=== PATIENT | male | born 1950 | race Caucasian/White ===

== ENCOUNTER 2022-09-21 17:38 | Observation (INO) | payer OTHER ==
[2022-09-21 18:06] LABS: SARS-CoV-2 Antigen Rapid Res Negative (Negative)
[2022-09-21 19:41] VITALS: BMI 26.8
[2022-09-21] MEDS ORDERED: ACETAMINOPHEN 325 MG TABLET PO PRN (19:45)
[2022-09-21] MEDS ORDERED: DIPHENHYDRAMINE 25 MG TAB/CAP PO PRN (19:45)
[2022-09-21] MEDS ORDERED: ONDANSETRON 4 MG (ODT) TAB PO PRN (19:45)
[2022-09-21] MEDS ORDERED: POLYETHYL GLY 3350 17 GM/DOSE PO PRN (19:45)
[2022-09-21] MEDS ORDERED: LOPERAMIDE HCL 2 MG CAPSULE PO PRN (19:45)
[2022-09-21] MEDS ORDERED: NACHLORIDE 0.45% 1,000 ML IV SCH ×2 (20:00→22:00)
[2022-09-21 20:05] LABS: Absolute Lymphocytes (CBC) 1.4 K/uL (0.7-4.9); Hematocrit 43.7 % (39.6-49.0); Lymphocytes % 12.3 % (15.3-44.8); MCV 91.1 fL (80-100); MPV 7.9 fL (7.6-11.3)
[2022-09-21 20:12] LABS: Protime INR 1.11
[2022-09-21 20:31] LABS: Albumin 3.8 g/dL (3.4-5.0); Bilirubin Direct 0.2 mg/dL (0-0.2); Bilirubin Total 0.6 mg/dL (0.2-1.0); Phosphorus 4.1 mg/dL (2.5-4.9); Potassium 4.1 mmol/L (3.5-5.1); Thyroid Stimulating Hormone 2.01 uIU/mL (0.358-3.740)
--- NOTE | 2022-09-21 21:16 | RAD REPORT ---
EXAM DESCRIPTION: US - Abdomen Exam Complete - 09/21/2022 8:54 pm CLINICAL HISTORY: Abdominal pain COMPARISON: None. TECHNIQUE Sonographic grayscale and color flow images of the abdomen are obtained. FINDINGS: Exam is technically limited given over shadowing bowel gas in the epigastrium, limiting ev aluation of the pancreas and portions of the left liver lobe. Gallbladder is normal in size and distention, with normal wall thickness. No gallstones, wall thicken ing or pericholecystic fluid. Common bile duct is normal normal in caliber, 4 millimeter, with no com mon duct stone identified. The liver and spleen show no suspicious findings. The pancreas is obscured . Mild right hydronephrosis. No hydronephrosis on the left. No echogenic calculi. Incidentally noted me dially situated left renal mid pole cortical 2.6 centimeter anechoic cyst. No Suspicious mass in eith er kidney Upper abdominal Aorta is normal is size. No ascites or bulky lymphadenopathy. IMPRESSION: Technically limited exam for reasons mentioned above. Mild right hydronephrosis. No suspicious abnormalities of the liver and gallbladder.
--- NOTE | 2022-09-21 21:32 | RAD REPORT ---
EXAM DESCRIPTION: Saraht Pa And Lat (2 Views)09/21/2022 9:06 pm CLINICAL HISTORY: abd pains COMPARISON: No comparisons TECHNIQUE: PA and lateral views of the chest. FINDINGS: The lungs are clear. No pneumothorax or effusion. The cardiomediastinal contours are unrem arkable. IMPRESSION: No acute cardiopulmonary process.
[2022-09-21] MEDS: HYDROMORPHONE HCL 1 MG/ML INJ IV PRN (21:35)
[2022-09-21] MEDS: ONDANSETRON 4 MG/2 ML VIAL IV PRN (21:38)
[2022-09-22] MEDS ORDERED: METRONIDAZOLE 500mg IVPB 500 MG/100 ML BAG IV SCH
[2022-09-22] MEDS: CIPROFLOXACIN 400mg IV 400 MG/200 ML BAG IV SCH ×2 (00:28→08:57)
[2022-09-22] MEDS: TAMSULOSIN 0.4 MG SR CAP PO SCH ×2 (00:28→09:00)
[2022-09-22] MEDS: HYDROMORPHONE HCL 1 MG/ML INJ IV PRN ×3 (00:30→09:02)
[2022-09-22 00:35] LABS: Specific Gravity 1.021 (1.005-1.030); Urine Bilirubin NEGATIVE (Negative); Urine Blood Negative (Negative); Urine Clarity Clear (Clear); Urine Color Light-Yellow (Yellow); Urine Glucose NEGATIVE (Negative); Urine Protein NEGATIVE (Negative); Urine Urobilinogen Normal (Normal); Urine pH 5.5 (5.0-7.0)
[2022-09-22] MEDS: ONDANSETRON 4 MG/2 ML VIAL IV PRN (04:51)
[2022-09-22 06:33] LABS: Lymphocytes % 9.5 % (15.3-44.8); MCV 90.8 fL (80-100); MPV 7.8 fL (7.6-11.3); RBC Red Blood Cell Count 4.74 M/uL (4.33-5.43)
[2022-09-22 06:40] LABS: Potassium 3.9 mmol/L (3.5-5.1)
[2022-09-22] MEDS ORDERED: ENOXAPARIN 30 MG/0.3 ML SQ SCH (09:00)
[2022-09-22 12:09] VITALS: BP 102/59; TEMP 97.4
--- NOTE | 2022-09-22 21:29 | RAD REPORT ---
EXAM DESCRIPTION: CT - Stone Protocol - 09/22/2022 12:00 am CLINICAL HISTORY: The patient is 72 years old and is Male; PAIN TECHNIQUE: Axial computed tomography images of the abdomen and pelvis without intravenous contrast. Sagittal and coronal reformatted images were created and reviewed. This CT exam was performed usi ng one or more of the following dose reduction techniques: automated exposure control, adjustment o f the mA and/or kV according to patient size, and/or use of iterative reconstruction technique. COMPARISON: No relevant prior studies available. FINDINGS: LUNG BASES: Unremarkable. No mass. No consolidation. ABDOMEN: LIVER: The liver is enlarged and fatty. GALLBLADDER AND BILE DUCTS: The gallbladder is distended without calcified gallstones or ductal dilatation. PANCREAS: Unremarkable. No ductal dilation. SPLEEN: Unremarkable. ADRENALS: Unremarkable. No mass. KIDNEYS AND URETERS: Edema of the right kidney with mild right hydroureteronephrosis is present secondary to a 5 mm right UVJ calculus. Right perinephric stranding is present. Right intrarenal ca lcification is noted. Exophytic left renal cyst is present. No follow-up imaging is recommended. Ther e is no hydronephrosis or hydroureter of the left kidney. STOMACH AND BOWEL: The stomach is decompressed. The small bowel is relatively normal in caliber. A moderate amount stool is present throughout colon. There is no mucosal thickening or evidence of o bstruction. PELVIS: APPENDIX: No findings to suggest acute appendicitis. BLADDER: Unremarkable. No stones. REPRODUCTIVE: The prostate is enlarged and mildly heterogeneous. ABDOMEN and PELVIS: INTRAPERITONEAL SPACE: Unremarkable. No free air. No significant fluid collection. BONES/JOINTS: Multilevel degenerative change of the spine is present. There is no acute fractu re. SOFT TISSUES: The soft tissues are normal. VASCULATURE: Atherosclerosis of the vasculature is present. The vessels are normal in caliber. Multiple calcified phleboliths are present within the pelvis. No abdominal aortic aneurysm. LYMPH NODES: Unremarkable. No enlarged lymph nodes. IMPRESSION: 1. Edema of the right kidney with mild right hydroureteronephrosis is present secondar y to a 5 mm right UVJ calculus. 2. Mild prostatomegaly. Correlation with PSA and physical exam is recommended. Electronically signed by: Jesenia Lazar MD 09/21/2022 11:20 PM COMMERCIAL ASSISTANT Due to temporary technical issues with the PACS/Fluency reporting system, reports are being signed by the in house radiologists without review as a courtesy to insure prompt reporting. The interpreting radiologist is fully responsible for the content of the report.
--- NOTE | 2022-09-22 21:40 | P.DS ---
Admission Date: 09/21/22 Discharge Date: 09/22/22 Disposition: ROUTINE DISCHARGE Hospital Course: MONICA HAS PAIN RUQ AND WAS FOUND TO HAVE R RENAL STONE AT [facility] WITH MILD HYDRO. HE SI STABLE TO GO HOEM. HE WILL CONTINUE DOXAZONE AND ULTRAM FOR PAIN. FU ONE WK. HE MA Y PASS THE STONE IT IS SMALL. Vital Signs/Physical Exam: Temp Pulse Resp BP Pulse Ox 97.4 F 60 18 102/59 L 96 09/22/22 12:00 09/22/22 12:00 09/22/22 12:00 09/22/22 12:00 09/22/22 12:00 Laboratory Data at Discharge: WBC 10.70 K/uL (4.3-10.9) 09/22/22 06:09 Hgb 15.1 g/dL (13.6-17.9) 09/22/22 06:09 Hct 43.0 % (39.6-49.0) 09/22/22 06:09 Plt Count 143 K/uL (152-406) L 09/22/22 06:09 PT 12.2 SECONDS (9.5-12.5) 09/21/22 19:53 INR 1.11 09/21/22 19:53 APTT 30.7 SECONDS (24.3-36.9) 09/21/22 19:53 Sodium 138 mmol/L (136-145) 09/22/22 06:09 Potassium 3.9 mmol/L (3.5-5.1) 09/22/22 06:09 BUN 30 mg/dL (7-18) H 09/22/22 06:09 Creatinine 2.15 mg/dL (0.70-1.30) H 09/22/22 06:09 Glucose 107 mg/dL (74-106) H 09/22/22 06:09 Phosphorus 4.1 mg/dL (2.5-4.9) 09/21/22 19:53 Magnesium 2.0 mg/dL (1.6-2.4) 09/22/22 06:09 Total Bilirubin 0.6 mg/dL (0.2-1.0) 09/21/22 19:53 AST 21 U/L (15-37) 09/21/22 19:53 ALT 32 U/L (16-61) 09/21/22 19:53 Alkaline Phosphatase 84 U/L (45-117) 09/21/22 19:53 Home Medications: Doxazosin Mesylate 1 tab PO BEDTIME 09/21/22
--- NOTE | 2022-09-23 16:32 | EKG ---
Test Date: 2022-09-22 Test Time: 00:15:16 International Editorial Producer: 33 MEASUREMENT RESULTS: Intervals: Rate: 67 SC: 146 QRSD: 94 QT: 388 QTc: 409 [place]: P: 69 SC: 146 QRS: -16 T: 42 INTERPRETIVE STATEMENTS: Normal sinus rhythm Normal ECG No previous ECG available for comparison Electronically Signed On 09-23-22 16:29:50 [employer]JECT INTER[employer] by Favian Fry
[2022-09-25 23:34] LABS: Vitamin D 1,25-Dihydroxy Total 34 pg/mL (18-72); Vitamin D,1,25-OH2, D2 <8 pg/mL
== END 2022-09-22 13:34 | disposition home or self-care (01) ==
LOC: 4TH 19:06
PROVIDERS: ADMIT Internal Medicine; ATTEND Internal Medicine
DX: N13.2 Hydronephrosis with renal and ureteral calculous obstruction (principal); Z20.822 Contact with and (suspected) exposure to COVID-19
CPT/HCPCS: 93005; 85025 ×2; 80048 ×2; 36415; 83735 ×2; 84100; 85610; 80076; 85730; 82652; 84443; 81003; 82607; 76377; 74176; 71046; 76700; 87811; J1170 ×4; J2405 ×2; J0744 ×2; G0378; G0379; J1650

== ENCOUNTER 2025-04-20 18:35 | Emergency (ER) | payer OTHER ==
[2025-04-20] MEDS ORDERED: LORAZEPAM 0.5 MG TABLET ONE (19:41)
--- NOTE | 2025-04-20 19:54 | EDPHYS ---
Physician Documentation [facility] Name: Justo Reynaga Age: 75 yrs Sex: Male : 1950 Arrival Date: 04/20/2025 Time: 18:35 Bed 5 Private MD: ED Physician Toribio Dewitt HPI: 04/20 19:41 This 75 yrs old Male presents to ER via Ambulatory with complaints of anxiety after tt7 surgery. 19:41 Patient is here for intermittent anxious feeling whenever he tries to swallow after tt7 taking his Rousseau that was recently prescribed after he had a laminectomy and decompression of his lumbar spine on Tuesday. He reports that sometimes, after taking his Rousseau, he has a sensation that he cannot swallow properly. He denies shortness of breath. He has been able to tolerate oral intake without coughing or pain. He states that since starting the Rousseau he has been having increased anxiety. He skipped a dose today and states that he felt much better. Historical: - Allergies: 18:51 PENICILLINS; hb - Immunization history:: Adult Immunizations up to date. - Infectious Disease History:: Denies. - Social history:: Smoking status: Patient denies any tobacco usage or history of. ROS: 19:44 Constitutional: negative for fever. Cardiovascular: negative for chest pain. tt7 Respiratory: negative for shortness of breath. Abdomen/GI: negative for abdominal pain, nausea, vomiting, diarrhea. Skin: negative for rash. Neuro: negative for focal weakness. 19:44 Neck: Negative for mass, pain with movement, pain at rest, stiffness, swelling, tenderness, Exam: 19:45 Constitutional: vital signs reviewed, well appearing. Head/Face: normocephalic, tt7 atraumatic. Eyes: no conjunctival injection, anicteric sclerae. ENT: mucus membranes moist, oropharynx clear. Neck: trachea midline, no JVD, no meningismus, no swelling, no cervical lymphadenopathy, no stridor. 19:46 Cardiovascular: regular rate and rhythm, no lower extremity edema. Respiratory: tt7 normal respiratory effort, no accessory muscle use. Back: vertical lumbar spine surgical incision well approximated with steri strips, clean, dry, no erythema or purulent drainage, no bleeding, normal ROM. MS/ Extremity: normal ROM of extremities, no gross deformities. Neuro: alert and oriented with appropriate mental status, normal speech, follows commands, no focal neurologic deficits. Psych: anxious. Vital Signs: 18:49 BP 149 / 85; Pulse 80; Resp 16; Temp 98.8(O); Pulse Ox 96% on R/A; Pain 5/10; hb 19:17 BP 103 / 84; Pulse 82; Resp 17; Temp 98.4; mf3 20:11 BP 160 / 86; Pulse 83; Resp 18; Pulse Ox 96% ; mf3 18:49 Pain Scale: Adult hb [place] Coma Score: 19:14 Eye Response: spontaneous(4). Motor Response: obeys commands(6). Verbal Response: mf3 oriented(5). Total: 15. MDM: 19:06 Medical Screening Exam initiated tt7 19:48 Differential diagnosis: anxiety, pharyngitis, adverse medication reaction. Data tt7 reviewed: vital signs, nurses notes. Test considered but Not performed: CT: considered CT neck soft tissue but feel this would be of low utility as I do not suspect structural cause of symptoms. Historians other than the Patient: Spouse/Significant Other: . Daughter/Son: . Counseling: I had a detailed discussion with the patient and/or guardian regarding the historical points, exam findings, and any diagnostic results supporting the discharge/admit diagnosis, the need for outpatient follow up, to return to the emergency department if symptoms worsen or persist or if there are any questions or concerns that arise at home. ED course: Well-appearing 75-year-old male with anxiety with swallowing after taking Rousseau, had recent laminectomy and decompression of the lumbar spine, his vital signs are stable, his physical exam is reassuring, I had long discussion with the patient and family regarding his symptoms and outpatient management of this, I advised them on pain management with Tylenol and ibuprofen, advised on discontinuing Rousseau, I offered alternative pain control medication which patient declined at this time, offered one-time dose of Ativan here in the emergency department to help the patient rest tonight and he accepted, advised the patient and family to return to the emergency department if they've any questions or concerns or issues with breakthrough postoperative pain, emergency department evaluation is reassuring. I do not suspect life-threatening process. Patient is stable and not in need of emergent medical intervention. I had a detailed discussion with the patient regarding the historical points, exam findings, emergency department evaluation, diagnostic results, and the discharge diagnosis. I discussed outpatient management of the patient's condition. I discussed the need for outpatient follow-up with primary care and relevant specialist. I discussed return precautions including the need to return to the ED if symptoms do not improve, worsen, or if there are any questions or concerns that arise at home. The patient was discharged in stable condition. Administered Medications: 19:44 Drug: LORazepam PO 0.5 mg PO once Route: PO; mf3 20:15 Follow up: Response: No adverse reaction 3 Disposition: 19:56 Co-signature as Attending Physician, Toribio Dewitt DO. tt7 Disposition Summary: 04/20/25 19:54 Discharge Ordered Notes: Location: Home tt7 Problem: new tt7 Symptoms: are unchanged tt7 Condition: Stable tt7 Diagnosis - ANXIETY tt7 - DIFFICULTY SWALLOWING tt7 - ADVERSE MEDICATION EFFECT tt7 Followup: tt7 - With: Emergency Department - When: As needed - Reason: Followup: tt7 - With: Private Physician - When: 1 - 2 days - Reason: Recheck today's complaints, Re-evaluation by your physician Discharge Instructions: - Discharge Summary Sheet tt7 - Deep Vein Thrombosis tt7 - Laminectomy, Care After tt7 Forms: - Medication Reconciliation Form tt7 - Antibiotic Education tt7 - Prescription Opioid Use tt7 - Patient Portal Instructions tt7 - Leadership Thank You Letter tt7 Signatures: Karol Ramachandran, RN RN Denise Veras RN RN [facility] Toribio Dewitt DO DO tt7 Corrections: (The following items were deleted from the chart) 18:51 18:51 Allergies: No Known Allergies; [facility]
--- NOTE | 2025-04-20 19:54 | ER ---
Nurse's Notes [facility] Name: Justo Reynaga Age: 75 yrs Sex: Male : 1950 Arrival Date: 04/20/2025 Time: 18:35 Bed 5 Private MD: Diagnosis: ANXIETY;DIFFICULTY SWALLOWING;ADVERSE MEDICATION EFFECT Presentation: 04/20 18:49 Chief complaint: Difficulty swallowing that started after back surgery 3 days ago, hb concerned it is related to being intubated or the [place]. Coronavirus screen: At this time, the client does not indicate any symptoms associated with coronavirus-19. Ebola Screen: No symptoms or risks identified at this time. Initial Sepsis Screen: Does the patient meet any 2 criteria? No. Patient's initial sepsis screen is negative. Does the patient have a suspected source of infection? No. Patient's initial sepsis screen is negative. Risk Assessment: Do you want to hurt yourself or someone else? Patient reports no desire to harm self or others. Onset of symptoms was April 17, 2025. 18:49 Method Of Arrival: Ambulatory hb 18:49 Acuity: KAREEM 4 hb Historical: - Allergies: 18:51 PENICILLINS; hb - Immunization history:: Adult Immunizations up to date. - Infectious Disease History:: Denies. - Social history:: Smoking status: Patient denies any tobacco usage or history of. Screenin:14 [facility] ED Fall Risk Assessment (Adult) History of falling in the last 3 months, mf3 including since admission No falls in past 3 months (0 pts) Confusion or Disorientation No (0 pts) Intoxicated or Sedated No (0 pts) Impaired Gait No (0 pts) Mobility Assist Device Used No (0 pt) Altered Elimination No (0 pt) Score/Fall Risk Level 0 - 2 = Low Risk Oriented to surroundings, Hourly rounding (assess needs \T\ fall precautionary measures) done. Abuse screen: Denies threats or abuse. Denies injuries from another. Nutritional screening: No deficits noted. Tuberculosis screening: No symptoms or risk factors identified. Never had TB. Assessment: 19:14 General: Appears uncomfortable, Behavior is calm, cooperative, appropriate for age. mf3 Pain: Complains of pain in back Pain currently is 5 out of 10 on a pain scale. Neuro: Level of Consciousness is Oriented to person, place, time, situation. Cardiovascular: Capillary refill < 3 seconds. Respiratory: Airway is patent Trachea midline Respiratory effort is even, unlabored. GI: No signs and/or symptoms were reported involving the gastrointestinal system. : No signs and/or symptoms were reported regarding the genitourinary system. EENT: Reports difficulty swallowing since taking hydrocodone post spinal decompression surgery. Derm: Skin is intact, is healthy with good turgor, Reports Bleeding from incision site, but bleeding controlled. 19:53 Reassessment: Patient states symptoms have improved. mf3 Vital Signs: 18:49 BP 149 / 85; Pulse 80; Resp 16; Temp 98.8(O); Pulse Ox 96% on R/A; Pain 5/10; hb 19:17 BP 103 / 84; Pulse 82; Resp 17; Temp 98.4; mf3 20:11 BP 160 / 86; Pulse 83; Resp 18; Pulse Ox 96% ; mf3 18:49 Pain Scale: Adult hb [place] Coma Score: 19:14 Eye Response: spontaneous(4). Motor Response: obeys commands(6). Verbal Response: mf3 oriented(5). Total: 15. ED Course: 18:41 Patient arrived in ED. cj3 18:51 Triage completed. hb 18:56 Toribio Dewitt DO is Attending Physician. tt7 19:14 Denise Veras, RN is Primary Nurse. mf3 19:14 Patient has correct armband on for positive identification. Bed in low position. Call mf3 light in reach. Side rails up X2. Provided Education on:. 19:14 No provider procedures requiring assistance completed. mf3 20:12 Patient did not have IV access during this emergency room visit. mf3 20:13 Arm band placed on right wrist. mf3 Administered Medications: 19:44 Drug: LORazepam PO 0.5 mg PO once Route: PO; mf3 20:15 Follow up: Response: No adverse reaction mf3 Medication: 19:14 VIS not applicable for this client. mf3 Outcome: 19:54 Discharge ordered by . tt7 20:12 Discharged to home ambulatory, with family, mf3 20:12 Condition: stable 20:12 Condition: improved 20:12 Discharge instructions given to patient, family, Instructed on discharge instructions, follow up and referral plans. Demonstrated understanding of instructions, follow-up care, 20:14 Patient left the ED. mf3 Signatures: Karol Ramachandran RN RN hb Mary Beth Golden 3 Denise Veras RN RN 3 Toribio Dewitt DO DO tt7 Corrections: (The following items were deleted from the chart) 18:51 18:51 Allergies: No Known Allergies; hb hb
[2025-04-20 20:26] VITALS: O2SAT 96
[2025-04-20 20:28] VITALS: TEMP 98.4
[2025-04-20 20:29] VITALS: BP 160/86
== END 2025-04-20 20:14 | disposition home or self-care (01) ==
LOC: ER 18:35
DX: F41.9 Anxiety disorder, unspecified (principal); R13.10 Dysphagia, unspecified; T50.905A Adverse effect of unspecified drugs, medicaments and biological substances, initial encounter; Z98.890 Other specified postprocedural states; Z88.0 Allergy status to penicillin
CPT/HCPCS: 99283